=== PATIENT | male | born 1950 | race Caucasian/White ===

== ENCOUNTER 2020-10-10 07:11 | Day surgery (SDC) | payer MEDICARE, BC ==
[~2020-10-10] VITALS: Ht 172.8 cm; Wt 101.0 kg
[2020-10-10] VITALS (13 sets, daily range): BP systolic 101–133; BP diastolic 59–102; PULSE 76–108; TEMP 98.8
[~2020-10-10 07:11] MED LIST: ADVIL200 MG PO; ASPIRIN 32325 MG/TA1; ASPIRIN 32325 MG/TA1 PO; BENADRYL25 M2 PO; ELIQUIS 5MG PO; FLONASE NASAL S16 GM NS; LIPITOR 10MG10 MG PO; MULTIPLE VITAMI1 CAP PO; PRINIVIL10 MG PO; PRINZIDE 25 MG-1 TAB PO; RESVERATROL; REVATIO20 MG PO; TOPROL XL 25MG25 MG PO; TOPROL XL 50MG50 MG PO; TUMERIC PO; VIAGRA100 M1 PO; VITAMIN B COMPL1 T16 PO; ZANTAC 7575 MG; ZANTAC 7575 MG PO; ZESTRIL 5MG5 MG; ZYRTEC 10MG10 MG PO; ZYRTEC5 MG; [UNRECOGNIZED DRUG - OTHER]
[2020-10-10 08:04] LABS: MEAN CELL VOLUME 86 fl (80.0-100.0); MEAN CORPUSCULAR HGB CONC 31 g/dl (33.0-37.0); MEAN PLATELET VOLUME 9.1 fl (7.4-10.4); PLATELET COUNT 214 K/mm3 (130-400); RED BLOOD COUNT 3.69 M/mm3 (4.20-5.60); REDCELL DISTRIBUTION WIDTH-CV 24.1 % (11.5-14.5)
[2020-10-10 08:05] LABS: HEMATOCRIT 31.8 % (42.0-52.0); HEMOGLOBIN 9.7 g/dl (13.5-18.0); MEAN CORPUSCULAR HEMOGLOBIN 26 pg (27.0-31.0)
[2020-10-10] MEDS ORDERED: IRON TABLETS325 MG PO (08:07)
[2020-10-10] MEDS ORDERED: VTAMINC250TA PO (08:08)
[2020-10-10] MEDS ORDERED: MAG-OX 400400 MG/TAB PO (08:09)
[2020-10-10] MEDS ORDERED: FLONASEALLERGY NS (08:10)
[2020-10-10] MEDS ORDERED: VITAMIN D250 MCG PO (08:10)
[2020-10-10 08:11] LABS: INR 1.2 (0.8-3.0); PROTHROMBIN TIME 13.8 SECONDS (9.7-12.8)
[2020-10-10] MEDS ORDERED: CLARITIN 1010 MG/TAB PO (08:11)
[2020-10-10] MEDS ORDERED: LIPITOR 40MG TA40 MG PO (08:11)
[2020-10-10] MEDS ORDERED: PROAIR HFA0.09 MG/AC IH (08:12)
[2020-10-10] MEDS ORDERED: PROTONIX20 MG PO (08:12)
[2020-10-10 08:13] LABS: CALCIUM 10.3 mg/dL (8.4-10.2); CREATININE, serum 1.25 (0.66-1.25); PARTIAL THROMBOPLASTIN TIME 67.9 SECONDS (26.0-37.0); POTASSIUM 4.3 mmol/L (3.4-5.0)
[2020-10-10] MEDS ORDERED: VOLTAREN GEL 1%1 TU TP (08:13)
[2020-10-10] MEDS ORDERED: CENTRUM MEN'S PO (08:13)
[2020-10-10] MEDS ORDERED: TOPROL XL 25MG25 MG PO (08:14)
[2020-10-10] MEDS ORDERED: COZAAR 25MG25 MG/TAB PO (08:14)
[2020-10-10] MEDS ORDERED: COUMADIN 1010 MG/TAB PO (08:15)
[2020-10-10] MEDS ORDERED: LASIX 40MG TABL40 MG PO (08:15)
[2020-10-10] MEDS ORDERED: LOVENOX 100100 MG/ML SQ (08:17)
[2020-10-10] MEDS ORDERED: K-DUR20 MEQ PO (08:18)
--- NOTE | 2020-10-10 09:25 | NUR ---
SEE MERGE DOCUMENTATION FOR MEDICATION ADMINISTRATION AND INTRA/POST PROCEDURE SEDATION ASSESSMENTS.
--- NOTE | 2020-10-10 11:25 | NUR ---
Pt arrived from clinical lab technologist with Safeguard in place, inflated with 30 mls, due to oozing at site with transfer from [facility] [employer] table.
--- NOTE | 2020-10-10 16:00 | NUR ---
Air removed from SafeGuard to rt groin puncture site in 10 ml increments, each 20 mins apart with no further bleeding or oozing at site. Pt was able to ambulate to restroom with steady gait following 4 hr bedrest period. New dressing applied to puncture site using sterile technique. Area remains soft to palpation and pedal pulse 3+.
--- NOTE | 2020-10-10 16:15 | NUR ---
DC instructions reviewed with pt and son, both express understanding. Instruction for continued INR checks and lovenox dosing given to pt prior to discharge. Per Cardiology office, pt will have lovenox injection tomorrow morning at [facility], and INR checks in their clinic tomorrow afternoon and Wednesday afternoon. Rt femoral puncture site remains soft to palpation with no further oozing with activity. Vitals have remained stable during recovery period. INT DC'd with catheter intact. Pt is assisted out to son's car by wheelchair.
== END 2020-10-10 16:15 | disposition home or self-care (01) ==
LOC: COL.CAR 07:11
PROVIDERS: Internal Medicine Cardiovascular Disease
DX: I25.10 Atherosclerotic heart disease of native coronary artery without angina pectoris (principal); I34.0 Nonrheumatic mitral (valve) insufficiency; I48.20 Chronic atrial fibrillation, unspecified; I47.1 Supraventricular tachycardia; I13.10 Hypertensive heart and chronic kidney disease without heart failure, with stage 1 through stage 4 chronic kidney disease, or unspecified chronic kidney disease; E66.9 Obesity, unspecified; E05.00 Thyrotoxicosis with diffuse goiter without thyrotoxic crisis or storm; K21.9 Gastro-esophageal reflux disease without esophagitis; Z79.899 Other long term (current) drug therapy; Z86.73 Personal history of transient ischemic attack (TIA), and cerebral infarction without residual deficits; Z20.822 Contact with and (suspected) exposure to COVID-19; Z79.01 Long term (current) use of anticoagulants
CPT/HCPCS: C1760; C1769; C1894; J1200; J1644; J2250; J2704; J3010; J7512